=== PATIENT | female | born 1960 | race Caucasian/White ===

== ENCOUNTER 2017-02-07 20:33 | Emergency (ER) | payer OTHER ==
[2017-02-07] MEDS ORDERED: LIDOCAINE 2%-EPI 1:100000 20 ML MDV ONE (21:07)
--- NOTE | 2017-02-07 21:28 | ED Physician Documentation ---
PD HPI HEAD INJURY - Stated complaint Stated Complaint: FALL RT EYELID LAC - Chief complaint Chief Complaint: Laceration - History obtained from History obtained from: Patient, Family - History of Present Illness Mechanism of head injury: Fell Where head injury occurred: Home Timing - onset: How many hours ago (1) Pain level max: 1 Pain level now: 1 Location of injury: Right (forehead) Quality of pain: Aching, Dull Associated symptoms: No: LOC, AMS, Amnesia, Nausea / vomiting, Neck pain, Paresthesias, Seizures, Ear drainage, Nasal drainage Symptoms improve with: Rest Symptoms worsen with: Palpation, Movement Contributing factors: Intoxicated (wine tonight). No: Anticoagulated Recently seen: Not recently seen - Additional information Additional information: Patient tripped and fell in her bathroom, striking her head on the wall causing a laceration to the right forehead. No loss of consciousness. No vomiting. Mild headache. Review of Systems Constitutional: denies: Fever, Chills GI: denies: Vomiting Musculoskeletal: denies: Neck pain, Back pain Neurologic: denies: Focal weakness, Numbness, Confused, Altered mental status, LOC PD PAST MEDICAL HISTORY - Past Medical History Past Medical History: Yes Endocrine/Autoimmune: HyPOthyroidism - Present Medications Home Medications: Ambulatory Orders Medication Instructions Recorded Confirmed No Known Home Medications [No 02/07/17 Known Home Medications] Thyroid [[place] [facility]roid] 02/07/17 - Allergies Allergies/Adverse Reactions: Allergies Allergy/AdvReac Type Severity Reaction Status Date / Time No Known Drug Allergies Allergy Verified 02/07/17 20:41 - Living Situation Living Situation: reports: With family Living Arrangement: reports: At home - Social History Does the pt drink ETOH?: Yes Does the pt have substance abuse?: No - Family History Family history: reports: Non contributory - Immunizations Immunizations are current?: Yes Immunizations: TDAP current <10years PD ED PE NORMAL - Vitals Vital signs reviewed: Yes - General General: Alert and oriented X 3, No acute distress, Well developed/nourished - HEENT HEENT: PERRL, EOMI, Ears normal, Moist mucous membranes, Other (2 cm, linear vertical laceration to the medial aspect of the right eyebrow. It appears deep. Slight bleeding. Otherwise atraumatic examination of the face and skull. 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 No: FB identified Skin layer closure: Nylon, Interrupted, Size #-0 - enter number (6), Sutures - enter # (7) Other: Patient tolerated well, No complications, Neurovascular intact, Dressing applied, Tetanus UTD Complexity: Simple PD MEDICAL DECISION MAKING - ED course Complexity details: re-evaluated patient, considered differential, d/w patient, d/w family ED course: Patient is a 56-year-old female presents today emergency department after a trip and fall tonight at home, sustaining a laceration to the forehead. Repaired with 6-0 nylon, interrupted sutures. Patient tolerated well. Tetanus up-to-date. Warnings of infection and instructions on wound care given at bedside. Also counseled on how to minimize scarring. Patient is GCS 15. Neurologically normal. No evidence of intracranial hemorrhage, will hold head CT at this time. Head injury instructions given at bedside. Patient counseled regarding signs and symptoms for which I believe and urgent re-evaluation would be necessary. Patient with good understanding of and agreement to plan and is comfortable going home at this time This document was made in part using voice recognition software. While efforts are made to proofread this document, sound alike and grammatical errors may occur. Departure - Departure Disposition: 01 Home, Self Care Clinical Impression: Forehead laceration Qualifiers: Encounter type: initial encounter Qualified Code(s): S01.81XA - Laceration without foreign body of other part of head, initial encounter Condition: Good Instructions: ED Laceration Facial Sutr Tape Follow-Up: KRISTI FOWLER [Primary Care Provider] - Comments: Return if you worsen. The stitches should be removed in 5-7 days with your doctor. Keep the wound clean. Pat it dry after showers. Return for redness, swelling, or drainage from the wound. Your blood pressure was elevated today on check in to the emergency department. This does not mean that you have hypertension, it is a common phenomenon to check into the emergency department and have elevated blood pressure. I recommend that you see your primary care physician within the week to have it rechecked when you're feeling better. Discharge Date/Time: 02/07/17 21:39
[2017-02-07 21:40] VITALS: BP 126/77
== END 2017-02-07 21:39 | disposition home or self-care (01) ==
LOC: ED 20:33
DX: S01.81XA Laceration without foreign body of other part of head, initial encounter (principal); W01.198A Fall on same level from slipping, tripping and stumbling with subsequent striking against other object, initial encounter; Y92.012 Bathroom of single-family (private) house as the place of occurrence of the external cause; E03.9 Hypothyroidism, unspecified; R03.0 Elevated blood-pressure reading, without diagnosis of hypertension
CPT/HCPCS: 12011; 99282; 99283